=== PATIENT | female | born 1935 | race Caucasian/White ===

== ENCOUNTER 2017-01-02 13:00 | Emergency (ER) | payer OTHER, MEDICARE ==
[~2017-01-02] VITALS: Ht 167.6 cm; Wt 81.3 kg
[~2017-01-02 13:00] MED LIST: ACET-1311 PO; ALBU0.08 INH; ASPI81TA28 PO; BISA10SU3 PR; CITA10TA8 PO; DONE10TA12 PO; GABA-112 PO; GUAI1TAB55 PO; HALO5INJ IM; LORA2INJ19 IM; LOSA100T65 PO; LVNIS30 SQ; MAGNSUS5 PO; METO50TA16 PO; NMN10 PO; QUET1TAB34 PO; SODIENE PR; [UNRECOGNIZED DRUG - CODE] PO
[2017-01-02 13:14] VITALS: TEMP 36.4; O2SAT 96; Ht 167.6 cm; Wt 81.3 kg
[2017-01-02] MEDS ORDERED: SODIUM CHLORIDE 0.9% 1000ML 1,000 ML IV STA (13:22)
--- NOTE | 2017-01-02 13:28 | EMERGENCY ROOM VISIT NOTE ---
History Report prepared by Shell: Jaun Hardy Under the Supervision of: Dr. Marquis Lo D.O. First contact with patient: 13:15 Chief Complaint: SYNCOPE (NEAR SYNCOPE) Stated Complaint: SYNCOPE History of Present Illness The patient is an 81 year old female who presents to the Emergency Room from [facility] with complaints of a syncopal episode that occurred prior to arrival today. Per the nursing staff, the patient was out for 10 minutes. Per the patient's daughter, [facility] noted that the patient was not alert at lunch, and sometimes went unresponsive. The patient was hard to arouse , but the patient's vitals were good. Per the patient's daughter, the patient was great 3 days ago, and was able to talk and laugh. 2 days ago, the patient was sleepy, but nothing like today. Yesterday, the patient was pretty good but a bit quiet. The patient has been eating and drinking fine. The patient has not stated any recent complaints, and she has not had any recent falls. In the room , the patient does complain of new left leg pain. The patient had left hip surgery in June. She has dementia. The patient has a history of a stent placement behind her eye. She is not on any pain medications. Source of History: patient, family (daughter), nursing staff Onset: Prior to arrival today Position: other (global - syncope) Symptom Intensity: episode lasted 10 minutes Timing: other (episode) Note: Associated symptoms: Left leg pain. Hard to arouse and not alert at lunch today. Review of Systems See HPI for pertinent positives & negatives. A total of 10 systems reviewed and were otherwise negative. Past Medical & Surgical Medical Problems: (1) Acute renal failure (2) Carotid artery-cavernous sinus fistula (3) Dementia (4) SIRS (systemic inflammatory response syndrome) Family History Patient reports no known family medical history. Social History Smoking Status: Unknown if Ever Smoked Drug Use: none Marital Status: Housing Status: long term Occupation Status: retired Current/Historical Medications Scheduled Bisacodyl (Dulcolax), 1 SUPP AZ UD Cholecalciferol (Vitamin D), 2,000 UNITS PO QAM Citalopram Hydrobromide (Celexa), 10 MG PO DAILY Donepezil Hydrochloride (Aricept), 10 MG PO HS Enteral Nutrition Formula (Nutritional Supplement), 1 DOSE PO BID Gabapentin (Neurontin), 100 MG PO TID Guaifenesin Ext Rel (Mucinex Ext Rel), 600 MG PO BID Losartan Potassium (Cozaar), 100 MG PO DAILY Memantine (Namenda), 10 MG PO BID Metoprolol Tartrate (Lopressor) (Lopressor), 50 MG PO DAILY Multivitamins/Minerals (Mvi With Minerals), 1 TAB PO DAILY Quetiapine Fumarate (Seroquel), 150 MG PO HS Quetiapine Fumarate (Seroquel), 100 MG PO BID Sodium Phosphate/Biphosphate (Fleet Enema), 1 EA AZ UD Scheduled PRN Acetaminophen (Tylenol), 650 MG PO Q6 PRN for MILD PAIN/TEMP>101 Alum & Mag Hydrox-Simethicone (Mag-Al Plus), 5 ML PO Q4 PRN for Indigestion Magnesium Hydroxide (Milk Of Magnesia), 30 ML PO UD PRN for Constipation Allergies Coded Allergies: Cimetidine (Unverified Allergy, Mild, 07/14/16) Penicillins (Unverified Allergy, Mild, 07/14/16) Sulfamethoxazole (Unverified Allergy, Mild, 07/14/16) Trimethoprim (Unverified Allergy, Mild, 07/14/16) Sulfa Antibiotics (Verified Allergy, Unknown, ., 07/16/16) Physical Exam Vital Signs Date Time Temp Pulse Resp B/P Pulse Ox O2 Delivery O2 Flow Rate FiO2 01/02/17 15:41 66 16 157/84 98 Room Air 01/02/17 14:52 62 16 143/52 97 Room Air 01/02/17 13:37 59 01/02/17 13:14 36.4 58 16 119/52 96 Room Air 01/02/17 13:14 96 Room Air Physical Exam GENERAL: Patient is asleep but awakens to verbal commands. Appears somewhat listless but does not appear to be in pain or anxious. EYES: Pupils are constricted and minimally reactive to light bilaterally. EARS, NOSE, MOUTH AND THROAT: The nose is without any evidence of any deformity. Mucous membranes are dry tongue is midline NECK: The neck is nontender and supple. RESPIRATORY: Shallow respirations noted. No tachypnea or conversational dyspnea appreciated. CARDIOVASCULAR: Regular rate and rhythm noted there no murmurs rubs or gallops normal S1 normal S2 GASTROINTESTINAL: The abdomen is soft. Bowel sounds are present in all quadrants. Abdomen is nontender MUSCULOSKELETAL/EXTREMITIES: Shortening and pain with range of motion of left leg. No deformity appreciated. SKIN: Pedal edema bilaterally. NEUROLOGIC: Patient is at baseline according to daughter. Medical Decision & Procedures ER Provider Diagnostic Interpretation: Radiology results as stated below per my review and radiologist interpretation: CT SCAN OF THE BRAIN WITHOUT IV CONTRAST CLINICAL HISTORY: Weakness. Change in mental status. Syncope. COMPARISON STUDY: No priors. TECHNIQUE: Unenhanced axial CT scan of the brain is performed from the vertex to the skull base. CT DOSE: 614.27 mGy.cm FINDINGS: Brain parenchyma: There are age-related involutional changes noting moderate patchy subcortical and periventricular microangiopathic change. There is no hemorrhage, mass effect, or evidence of acute territorial ischemia by CT criteria. A chronic lacunar infarct is identified in the left caudate head. Cunningham-white matter is preserved. No extra-axial fluid collection is seen. Ventricles, sulci, cisterns: Prominent secondary to involutional change. Intracranial vasculature: There is atherosclerotic calcification of the cavernous carotid and vertebral arteries. 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 Calvarium: Unremarkable. Sinuses and mastoids: There is trace mucosal thickening within the right maxillary antrum and ethmoid sinuses. Moderate mucosal thickening is seen in the left frontal sinus. The mastoid air cells are well pneumatized. Orbits: The bony orbits are grossly intact. There are bilateral ocular lens implants. 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 IMPRESSION: 1. There is no hemorrhage, mass effect, or evidence of acute territorial ischemia by CT criteria. 2. 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 Correlation the patient's medical history will be required. Electronically signed by: Westley Schuster M.D. 01/02/2017 2:44 PM Dictated Date/Time: 01/02/2017 2:39 PM CHEST ONE VIEW PORTABLE CLINICAL HISTORY: Altered mental status, weakness, syncope. COMPARISON STUDY: 07/16/2016 FINDINGS: The cardiac and mediastinal contours are normal. There is no evidence of focal pulmonary consolidation. There is no evidence of failure. No pleural effusions are visualized.[ Increased markings the right lung base are likely atelectatic. These appear improved compared the prior study. IMPRESSION: Improving right basilar atelectatic change. No acute findings. Electronically signed by: Ahsan De Anda M.D. 01/02/2017 2:14 PM Dictated Date/Time: 01/02/2017 2:13 PM LEFT PELVIS/UNILATERAL HIP 2-3VIEWS CLINICAL HISTORY: left hip pain COMPARISON STUDY: Pelvis and left hip 09/20/2016. FINDINGS: There is a left hip hemiarthroplasty. The hardware appears intact. No fracture or dislocation within the pelvis or hips. The sacrum appears intact. Large amount of stool seen within the rectum. The bones are osteopenic. IMPRESSION: No fracture or dislocation within the pelvis or hips. Electronically signed by: Zaire Ramirez M.D. 01/02/2017 2:13 PM Dictated Date/Time: 01/02/2017 2:11 PM Laboratory Results 01/02/17 14:40 Red Blood Count 4.00, Mean Corpuscular Volume 91.8, Mean Corpuscular Hemoglobin 29.3, Mean Corpuscular Hemoglobin Concent 31.9, Mean Platelet Volume 9.7, Neutrophils (%) (Auto) 71.3, Lymphocytes (%) (Auto) 16.0, Monocytes (%) (Auto) 7.3, Eosinophils (%) (Auto) 4.7, Basophils (%) (Auto) 0.4, Neutrophils # (Auto) 5.34, Lymphocytes # (Auto) 1.20, Monocytes # (Auto) 0.55, Eosinophils # (Auto) 0.35, Basophils # (Auto) 0.03 01/02/17 14:40 Test 01/02/17 13:49 01/02/17 14:40 01/02/17 16:15 Bedside Glucose 127 mg/dl (70-90) White Blood Count 7.49 K/uL (4.8-10.8) Red Blood Count 4.00 M/uL (4.2-5.4) Hemoglobin 11.7 g/dL (12.0-16.0) Hematocrit 36.7 % (37-47) Mean Corpuscular Volume 91.8 fL (80-100) Mean Corpuscular Hemoglobin 29.3 pg (25-34) Mean Corpuscular Hemoglobin Concent 31.9 g/dl (32-36) Platelet Count 280 K/uL (130-400) Mean Platelet Volume 9.7 fL (7.4-10.4) Neutrophils (%) (Auto) 71.3 % Lymphocytes (%) (Auto) 16.0 % Monocytes (%) (Auto) 7.3 % Eosinophils (%) (Auto) 4.7 % Basophils (%) (Auto) 0.4 % Neutrophils # (Auto) 5.34 K/uL (1.4-6.5) Lymphocytes # (Auto) 1.20 K/uL (1.2-3.4) Monocytes # (Auto) 0.55 K/uL (0.11-0.59) Eosinophils # (Auto) 0.35 K/uL (0-0.5) Basophils # (Auto) 0.03 K/uL (0-0.2) RDW Standard Deviation 46.8 fL (36.4-46.3) RDW Coefficient of Variation 14.1 % (11.5-14.5) Immature Granulocyte % (Auto) 0.3 % Immature Granulocyte # (Auto) 0.02 K/uL (0.00-0.02) Prothrombin Time 10.1 SECONDS (9.0-12.0) Prothromb Time International Ratio 0.9 (0.9-1.1) Activated Partial Thromboplast Time 23.3 SECONDS (21.0-31.0) Partial Thromboplastin Ratio 0.9 Anion Gap 5.0 mmol/L (3-11) Est Creatinine Clear Calc Drug Dose 28.4 ml/min Estimated GFR () 32.4 Estimated GFR (Non- 28.0 BUN/Creatinine Ratio 18.6 (10-20) Calcium Level 11.0 mg/dl (8.5-10.1) Phosphorus Level 3.3 mg/dl (2.5-4.9) Magnesium Level 2.3 mg/dl (1.8-2.4) Total Bilirubin 0.4 mg/dl (0.2-1) Direct Bilirubin 0.1 mg/dl (0-0.2) Aspartate Amino Transf (AST/SGOT) 13 U/L (15-37) Alanine Aminotransferase (ALT/SGPT) 20 U/L (12-78) Alkaline Phosphatase 110 U/L (45-117) Total Creatine Kinase 43 U/L (26-192) Creatine Kinase MB 1.1 ng/ml (0.5-3.6) Creatine Kinase MB Ratio 2.6 (0-3.0) Troponin I < 0.015 ng/ml (0-0.045) Total Protein 7.9 gm/dl (6.4-8.2) Albumin 3.4 gm/dl (3.4-5.0) Thyroid Stimulating Hormone (TSH) 1.810 uIu/ml (0.300-4.500) Urine Color YELLOW Urine Appearance CLEAR (CLEAR) Urine pH 5.0 (4.5-7.5) Urine Specific [place] 1.016 (1.000-1.030) Urine Protein NEG (NEG) Urine Glucose (UA) NEG (NEG) Urine Ketones NEG (NEG) Urine Occult Blood NEG (NEG) Urine Nitrite POS (NEG) Urine Bilirubin NEG (NEG) Urine Urobilinogen NEG (NEG) Urine Leukocyte Esterase NEG (NEG) Urine WBC (Auto) 1-5 /hpf (0-5) Urine RBC (Auto) 0-4 /hpf (0-4) Urine Hyaline Casts (Auto) 1-5 /lpf (0-5) Urine Epithelial Cells (Auto) 5-10 /lpf (0-5) Urine Bacteria (Auto) 2+ (NEG) Laboratory results per my review. Medications Administered Medications (Trade) Dose Ordered Sig/Janet Route Start Time Stop Time Status Last Admin Dose Admin Sodium Chloride (Nss 1000ml) 1,000 ml @ 999 mls/hr Q1H1M STAT IV 01/02/17 13:22 01/02/17 14:22 DC 01/02/17 14:11 999 MLS/HR ECG Indication: syncope Rate (beats per minute): 61 Rhythm: sinus rhythm Findings: 1st degree AV block, no ectopy, other (RBBB) Change: no significant change (from July 14 2016) ED Course 1316: The patient was evaluated in room C5. A complete history and physical examination were performed. 1322: Ordered NSS 1000 ml @ 999 mls/hr IV. 1600: I reevaluated the patient and we are going to cath her urine. If it comes back infected, then the patient's daughter wants us to keep the patient. If it is not infected, then she can go home and be followed up with. 1656: Upon reevaluation, the patient is resting comfortably and I told the family that the urine was clean. I discussed the results and treatment plan with the patient and her family. They verbalized agreement of the treatment plan. The patient was discharged home. Medical Decision Prior records/ancillary studies reviewed. Triage Nursing notes reviewed. Additional history obtained from daughter. Differential diagnosis: Etiologies such as vasovagal event, infection, hypoglycemia, electrolyte abnormalities, cardiac sources, intracerebral event, toxicologic, neurologic, as well as others were entertained. The patient is an 81-year-old female who presented to the emergency department for an evaluation after a syncopal episode. According to the long term staff. The patient had an episode where she passed out and was nonresponsive for a short period of time. She also did not have any seizure activity. The patient arrived at the emergency department in her normal mental status according to her daughter. The patient did not have any focal neurologic deficits but did have left leg pain with range of motion testing. There is no history of trauma but the patient doesn't a history of a hip replacement. For this reason radiographic studies were obtained. No definite injury was noted. The patient was treated with IV fluids in the emergency department. I discussed the patient's laboratory radiographic studies with her and her daughter. She appears to have no definite signs of urinary tract infection but this was a cath specimen, so it was sent for culture. She was found have a mild elevation in her creatinine, as well as in mild elevation in her calcium. This could explain the patient's symptoms she may be mildly dehydrated and passed out because of orthostasis. I discussed the case with the emergency Department case assembler. At this time she does not meet definite criteria for admission and the patient's daughter was comfortable with her having further workup as an outpatient. She was encouraged to continue all medications as prescribed and have repeat laboratory studies in 3-5 days. She was also encouraged to return to the emergency department immediately if symptoms change worsen or the need arises. Impression Primary Impression: Hypercalcemia Additional Impressions: Syncope Acute kidney injury Dehydration Scribe Attestation The scribe's documentation has been prepared under my direction and personally reviewed by me in its entirety. I confirm that the note above accurately reflects all work, treatment, procedures, and medical decision making performed by me. Departure Information Dispostion Home / Self-Care Referrals No Doctor, Assigned (PCP) Forms HOME CARE DOCUMENTATION FORM, IMPORTANT VISIT INFORMATION Patient Instructions Dehydration, Hypercalcemia Dc, My [facility] Additional Instructions [place] calcium level was mildly elevated today in the emergency department. I would recommend repeat laboratory tests to be done in 3-5 days including repeat electrolytes to check creatinine as well as calcium. I would also recommend a follow-up of the urine culture in 24-48 hours to be sure this is not consistent with the urinary tract infection. Continue to drink plenty clear liquids. I would also recommend other testing such as echocardiogram or Holter monitoring if this is felt to be necessary by the primary care physician because of the episode that occurred today. Otherwise continue all medications as prescribed and return to the emergency department immediately if symptoms change worsen or the need arises. Problem Qualifiers Additional Impressions: Syncope Syncope type: unspecified Qualified Codes: R55 - Syncope and collapse
[2017-01-02] MEDS ORDERED: MULT-513 PO (14:04)
[2017-01-02] MEDS ORDERED: CHOL200010 PO (14:06)
[2017-01-02] MEDS ORDERED: NTRS PO (14:06)
[2017-01-02] MEDS ORDERED: MOML PO (14:08)
--- NOTE | 2017-01-02 14:14 | DIAGNOSTIC IMAGING REPORT ---
LEFT PELVIS/UNILATERAL HIP 2-3VIEWS CLINICAL HISTORY: left hip pain COMPARISON STUDY: Pelvis and left hip 09/20/2016. FINDINGS: There is a left hip hemiarthroplasty. The hardware appears intact. No fracture or dislocation within the pelvis or hips. The sacrum appears intact. Large amount of stool seen within the rectum. The bones are osteopenic. IMPRESSION: No fracture or dislocation within the pelvis or hips. Electronically signed by: Zaire Ramirez M.D. 01/02/2017 2:13 PM Dictated Date/Time: 01/02/2017 2:11 PM
--- NOTE | 2017-01-02 14:15 | DIAGNOSTIC IMAGING REPORT ---
CHEST ONE VIEW PORTABLE CLINICAL HISTORY: Altered mental status, weakness, syncope. COMPARISON STUDY: 07/16/2016 FINDINGS: The cardiac and mediastinal contours are normal. There is no evidence of focal pulmonary consolidation. There is no evidence of failure. No pleural effusions are visualized.[ Increased markings the right lung base are likely atelectatic. These appear improved compared the prior study. IMPRESSION: Improving right basilar atelectatic change. No acute findings. Electronically signed by: Ahsan De Anda M.D. 01/02/2017 2:14 PM Dictated Date/Time: 01/02/2017 2:13 PM
--- NOTE | 2017-01-02 14:45 | DIAGNOSTIC IMAGING REPORT ---
CT SCAN OF THE BRAIN WITHOUT IV CONTRAST CLINICAL HISTORY: Weakness. Change in mental status. Syncope. COMPARISON STUDY: No priors. TECHNIQUE: Unenhanced axial CT scan of the brain is performed from the vertex to the skull base. CT DOSE: 614.27 mGy.cm FINDINGS: Brain parenchyma: There are age-related involutional changes noting moderate patchy subcortical and periventricular microangiopathic change. There is no hemorrhage, mass effect, or evidence of acute territorial ischemia by CT criteria. A chronic lacunar infarct is identified in the left caudate head. Cunningham-white matter is preserved. No extra-axial fluid collection is seen. Ventricles, sulci, cisterns: Prominent secondary to involutional change. Intracranial vasculature: There is atherosclerotic calcification of the cavernous carotid and vertebral arteries. 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 Calvarium: Unremarkable. Sinuses and mastoids: There is trace mucosal thickening within the right maxillary antrum and ethmoid sinuses. Moderate mucosal thickening is seen in the left frontal sinus. The mastoid air cells are well pneumatized. Orbits: The bony orbits are grossly intact. There are bilateral ocular lens implants. 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 IMPRESSION: 1. There is no hemorrhage, mass effect, or evidence of acute territorial ischemia by CT criteria. 2. 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 Correlation the patient's medical history will be required. Electronically signed by: Westley Schuster M.D. 01/02/2017 2:44 PM Dictated Date/Time: 01/02/2017 2:39 PM
[2017-01-02 14:51] LABS: BASO % 0.4 %; BASO ABS # 0.03 K/uL (0-0.2); COMPLETE YES; EOS % 4.7 %; HEMATOCRIT 36.7 % (37-47); IG% 0.3 %; MEAN CELL VOLUME 91.8 fL (80-100); MEAN CORPUSCULAR HEMOGLOBIN 29.3 pg (25-34); MEAN CORPUSCULAR HGB CONC 31.9 g/dl (32-36); MEAN PLATELET VOLUME 9.7 fL (7.4-10.4); MONO % 7.3 %; NEUT % 71.3 %; PLATELET COUNT 280 K/uL (130-400); WHITE BLOOD COUNT 7.49 K/uL (4.8-10.8)
[2017-01-02 15:07] LABS: INR 0.9 (0.9-1.1); PARTIAL THROMBOPLASTIN RATIO 0.9; PROTHROMBIN TIME (PATIENT) 10.1 SECONDS (9.0-12.0)
[2017-01-02 15:17] LABS: ALT/SGPT 20 U/L (12-78); AST/SGOT 13 U/L (15-37); BLOOD UREA NITROGEN 32 mg/dl (7-18); BUN/CREATININE RATIO 18.6 (10-20); CARBON DIOXIDE 30 mmol/L (21-32); CHLORIDE 106 mmol/L (98-107); GLUCOSE 143 mg/dl (70-99); MAGNESIUM 2.3 mg/dl (1.8-2.4); POTASSIUM 4.1 mmol/L (3.5-5.1); SODIUM 141 mmol/L (136-145)
[2017-01-02 15:25] LABS: ALKALINE PHOSPHATASE 110 U/L (45-117); CKMB/CK RATIO 2.6 (0-3.0); PHOSPHORUS 3.3 mg/dl (2.5-4.9)
[2017-01-02 16:40] LABS: URINE APPEARANCE CLEAR (CLEAR); URINE BILIRUBIN NEG (NEG); URINE COLOR YELLOW; URINE NITRITE POS (NEG); URINE SPECIFIC GRAVITY 1.016 (1.000-1.030); UROBILINOGEN NEG (NEG); ZZURINE CULT IF INDIC CATH YES
[2017-01-02 16:50] LABS: MANUAL MICROSCOPIC REQUIRED? NO; REVIEW REQ? NO
[2017-01-02 19:38] VITALS: BP 135/71; PULSE 65; O2SAT 98
== END 2017-01-02 19:40 | disposition home or self-care (01) ==
LOC: EDBD 13:00 → C.EDC 13:01
DX: E83.52 Hypercalcemia (principal); R55 Syncope and collapse; E86.0 Dehydration; N17.9 Acute kidney failure, unspecified; M79.605 Pain in left leg; F03.90 Unspecified dementia, unspecified severity, without behavioral disturbance, psychotic disturbance, mood disturbance, and anxiety; Z79.899 Other long term (current) drug therapy

== ENCOUNTER → 2017-01-03 | Outpatient (CLI) | payer OTHER, MEDICARE ==
[~2017-01-03] MED LIST changes: -ALBU0.08 INH; -ASPI81TA28 PO; +CHOL200010 PO; -HALO5INJ IM; -LORA2INJ19 IM; -LVNIS30 SQ; -MAGNSUS5 PO; +MOML PO; +MULT-513 PO; +NTRS PO
--- NOTE | 2017-01-03 14:15 | ECHOCARDIOGRAM REPORT ---
*NOTICE TO RECEIVING LIBERTARIAN AGENCY This information is strictly Confidential and protected under [place] law. [place] law prohibits you from making any further disclosure of this information unless further disclosure is expressly permitted by the written consent of the person to whom it pertains or is authorized by law. A general authorization for the release of medical or other information is not sufficient for this purpose. Hospital accepts no responsibility if the information is made available to any other person, INCLUDING THE PATIENT. Interpretation Summary * Name: ALONSO SIMS Study Date: 01/03/2017 12:12 PM BP: 135/71 mmHg * Patient Location: [facility] HR: 79 * : 1935 (M/d/yyyy) Gender: Female Height: 66 in * Age: 81 yrs Ethnicity: [place] Weight: 179 lb * Ordering Physician: CHRISTEN RODRIGUEZ MD * Performed By: Jen Aguilera RCS * * Reason For Study: UNRESPONSIVE EPISODE * BSA: 1.9 m2 * -- Conclusions -- * There is mild concentric left ventricular hypertrophy. * Left ventricular systolic function is normal. * Grade I diastolic dysfunction, (abnormal relaxation pattern). * Right ventricular systolic pressure is normal. Procedure Details * A complete two-dimensional transthoracic echocardiogram was performed (2D, M-mode, Doppler and color flow Doppler). Left Ventricle * The left ventricle is normal in size. * There is mild concentric left ventricular hypertrophy. * Left ventricular systolic function is normal. * Ejection Fraction = 60-65%. * Grade I diastolic dysfunction, (abnormal relaxation pattern). * The left ventricular wall motion is normal. Right Ventricle * The right ventricle is normal in size and function. Atria * The left atrial size is normal. * Right atrial size is normal. Mitral Valve * The mitral valve leaflets appear thickened, but open well. * There is no mitral regurgitation noted. Tricuspid Valve * The tricuspid valve is not well visualized, but is grossly normal. * There is trace tricuspid regurgitation. * Right ventricular systolic pressure is normal. Aortic Valve * Aortic valve sclerosis mild, without significant aortic valvular stenosis. * No hemodynamically significant valvular aortic stenosis. * There is no significant aortic regurgitation. Pericardium/Pleural * There is no pericardial effusion. Great Vessels * Normal inferior vena cava size and collapsability with sniff indicates a normal right atrial pressure of 3 mmHg MMode 2D Measurements and Calculations IVSd 1.2 cm IVSs 1.8 cm LVIDd 3.4 cm LVIDs 2.2 cm LVPWd 1.5 cm LVPWs 1.7 cm IVS/LVPW 0.82 FS 35.8 % EDV(Teich) 45.8 ml ESV(Teich) 15.3 ml EF(Teich) 66.6 % EDV(cubed) 37.6 ml ESV(cubed) 10.0 ml EF(cubed) 73.5 % % IVS thick 51.1 % % LVPW thick 12.7 % LV mass(C)d 152.9 grams LV mass(C)dI 80.2 grams/m\S\2 LV mass(C)s 142.5 grams LV mass(C)sI 74.7 grams/m\S\2 SV(Teich) 30.5 ml SI(Teich) 16.0 ml/m\S\2 SV(cubed) 27.7 ml SI(cubed) 14.5 ml/m\S\2 ACS 1.6 cm LVOT diam 2.0 cm LVOT area 3.2 cm\S\2 Doppler Measurements and Calculations MV E max alvarez 61.5 cm/sec MV A max alvarez 123.5 cm/sec MV E/A 0.50 MV P1/2t max alvarez 74.2 cm/sec MV P1/2t 76.7 msec MVA(P1/2t) 2.9 cm\S\2 MV dec slope 283.0 cm/sec\S\2 MV dec time 0.32 sec Ao V2 max 155.4 cm/sec Ao max PG 9.7 mmHg Ao max PG (full) 6.1 mmHg KATHERIN(V,A) 1.9 cm\S\2 KATHERIN(V,D) 1.9 cm\S\2 LV V1 max PG 3.6 mmHg LV V1 max 94.4 cm/sec PA V2 max 108.3 cm/sec PA max PG 4.7 mmHg TR max alvarez 247.2 cm/sec
--- NOTE | 2017-01-21 17:51 | CODING QUERY NO DIAGNOSIS ---
TREATMENT RENDERED WITHOUT A DIAGNOSIS To promote full compliance with coding requirements relating to patient care, physician participation is requested in all cases of asbestos surveyor uncertainty. Please assist us with providing a diagnosis/symptom for the test(s) below: A diagnosis/symptom was not documented on your Order. A valid diagnosis/symptom is required to bill all insurances. Please remember that we are unable to code a diagnosis of rule out, probable, possible, questionable, or suspected. Tests that require a diagnosis: * ECHO COMPLETE DIAGNOSIS: * CPL-OP OTHER THAN EKG DIAGNOSIS: Provider Signature: Date: Thank you Ambar Esposito [employer] Information Management Once completed, please kindly fax back to [phone] For questions please call [phone]
== END ==
LOC: C.CPL 11:54
PROVIDERS: ATTEND Nurse Practitioner Family
DX: R94.31 Abnormal electrocardiogram [ECG] [EKG] (principal)

== ENCOUNTER → 2017-01-06 | Outpatient (CLI) | payer OTHER, MEDICARE ==
[2017-01-06 11:25] LABS: CALCIUM 11.7 mg/dl (8.5-10.1)
--- NOTE | 2017-01-23 06:47 | CODING QUERY NO DIAGNOSIS ---
TREATMENT RENDERED WITHOUT A DIAGNOSIS To promote full compliance with coding requirements relating to patient care, physician participation is requested in all cases of dental technologist uncertainty. Please assist us with providing a diagnosis/symptom for the test(s) below: A diagnosis/symptom was not documented on your Order. A valid diagnosis/symptom is required to bill all insurances. Please remember that we are unable to code a diagnosis of rule out, probable, possible, questionable, or suspected. Tests that require a diagnosis: * CALCIUM DIAGNOSIS: * CREATININE DIAGNOSIS: Provider Signature: Date: Thank you Ambar [place] [employer] Information Management Once completed, please kindly fax back to [phone] For questions please call [phone]
== END ==
LOC: C.LABUPHEI 09:28
PROVIDERS: ATTEND Family Medicine
DX: N18.9 Chronic kidney disease, unspecified (principal)

== ENCOUNTER → 2017-01-08 | Outpatient (CLI) | payer OTHER, MEDICARE ==
[2017-01-08 09:43] LABS: BASO % 0.1 %; BASO ABS # 0.02 K/uL (0-0.2); COMPLETE YES; EOS % 1.8 %; IG% 0.4 %; LYMPH ABS # 1.75 K/uL (1.2-3.4); MEAN CELL VOLUME 90.7 fL (80-100); MEAN CORPUSCULAR HEMOGLOBIN 29.5 pg (25-34); MEAN CORPUSCULAR HGB CONC 32.5 g/dl (32-36); MEAN PLATELET VOLUME 10.2 fL (7.4-10.4); MONO % 8.1 %; NEUT % 76.6 %; PLATELET COUNT 277 K/uL (130-400); RED BLOOD COUNT 3.53 M/uL (4.2-5.4); WHITE BLOOD COUNT 13.51 K/uL (4.8-10.8)
[2017-01-08 10:07] LABS: ALB/GLOB RATIO 0.8 (0.9-2); ALT/SGPT 17 U/L (12-78); AST/SGOT 17 U/L (15-37); BLOOD UREA NITROGEN 47 mg/dl (7-18); BUN/CREATININE RATIO 18.1 (10-20); CALCIUM 10.6 mg/dl (8.5-10.1); CARBON DIOXIDE 30 mmol/L (21-32); CHLORIDE 105 mmol/L (98-107); GLUCOSE 97 mg/dl (70-99); POTASSIUM 3.9 mmol/L (3.5-5.1); SODIUM 141 mmol/L (136-145)
[2017-01-08 10:08] LABS: ALKALINE PHOSPHATASE 83 U/L (45-117)
== END ==
LOC: C.LABUPHEI 08:47
PROVIDERS: ATTEND Family Medicine
DX: M62.81 Muscle weakness (generalized) (principal)

== ENCOUNTER → 2017-01-09 | Outpatient (CLI) | payer OTHER, MEDICARE ==
[2017-01-09 10:11] LABS: BASO % 0.2 %; BASO ABS # 0.02 K/uL (0-0.2); COMPLETE YES; EOS % 4.4 %; HEMATOCRIT 32.2 % (37-47); IG% 0.4 %; LYMPH % 13.8 %; LYMPH ABS # 1.48 K/uL (1.2-3.4); MEAN CORPUSCULAR HEMOGLOBIN 28.8 pg (25-34); MEAN CORPUSCULAR HGB CONC 31.7 g/dl (32-36); MEAN PLATELET VOLUME 10.4 fL (7.4-10.4); MONO % 7.6 %; NEUT % 73.6 %; PLATELET COUNT 276 K/uL (130-400); RED BLOOD COUNT 3.54 M/uL (4.2-5.4); WHITE BLOOD COUNT 10.71 K/uL (4.8-10.8)
[2017-01-09 10:31] LABS: BLOOD UREA NITROGEN 39 mg/dl (7-18); BUN/CREATININE RATIO 19.4 (10-20); CARBON DIOXIDE 26 mmol/L (21-32); CHLORIDE 105 mmol/L (98-107); GLUCOSE 103 mg/dl (70-99); POTASSIUM 3.8 mmol/L (3.5-5.1); SODIUM 139 mmol/L (136-145)
[2017-01-09 10:34] LABS: CALCIUM 9.7 mg/dl (8.5-10.1)
== END ==
LOC: C.LABUPHEI 09:12
PROVIDERS: ATTEND Nurse Practitioner Family
DX: N18.9 Chronic kidney disease, unspecified (principal)

== ENCOUNTER → 2017-01-11 | Outpatient (CLI) | payer OTHER, MEDICARE ==
[2017-01-11 07:43] LABS: BASO % 0.3 %; BASO ABS # 0.02 K/uL (0-0.2); COMPLETE YES; EOS % 6.3 %; HEMATOCRIT 29.8 % (37-47); IG% 0.3 %; LYMPH % 20.7 %; LYMPH ABS # 1.59 K/uL (1.2-3.4); MEAN CELL VOLUME 91.1 fL (80-100); MEAN CORPUSCULAR HGB CONC 32.9 g/dl (32-36); MEAN PLATELET VOLUME 10.3 fL (7.4-10.4); NEUT % 61.4 %; PLATELET COUNT 271 K/uL (130-400); RED BLOOD COUNT 3.27 M/uL (4.2-5.4); WHITE BLOOD COUNT 7.67 K/uL (4.8-10.8)
[2017-01-11 07:57] LABS: BLOOD UREA NITROGEN 24 mg/dl (7-18); CALCIUM 9.4 mg/dl (8.5-10.1); CARBON DIOXIDE 25 mmol/L (21-32); CHLORIDE 110 mmol/L (98-107); GLUCOSE 103 mg/dl (70-99); POTASSIUM 3.7 mmol/L (3.5-5.1); SODIUM 142 mmol/L (136-145)
== END ==
LOC: C.LABUPHEI 08:39
PROVIDERS: ATTEND Family Medicine
DX: I10 Essential (primary) hypertension (principal); N18.9 Chronic kidney disease, unspecified

== ENCOUNTER → 2017-01-17 | Outpatient (CLI) | payer OTHER, MEDICARE ==
[2017-01-17 11:52] LABS: MEAN CELL VOLUME 90.7 fL (80-100); MEAN CORPUSCULAR HEMOGLOBIN 28.9 pg (25-34); MEAN CORPUSCULAR HGB CONC 31.9 g/dl (32-36); MEAN PLATELET VOLUME 9.5 fL (7.4-10.4); PLATELET COUNT 345 K/uL (130-400); RED BLOOD COUNT 3.53 M/uL (4.2-5.4); WHITE BLOOD COUNT 6.41 K/uL (4.8-10.8)
[2017-01-17 12:02] LABS: BLOOD UREA NITROGEN 18 mg/dl (7-18); BUN/CREATININE RATIO 12.5 (10-20); CARBON DIOXIDE 28 mmol/L (21-32); CHLORIDE 107 mmol/L (98-107); GLUCOSE 97 mg/dl (70-99); POTASSIUM 3.7 mmol/L (3.5-5.1); SODIUM 142 mmol/L (136-145)
[2017-01-17 12:10] LABS: CALCIUM 9.5 mg/dl (8.5-10.1)
== END ==
LOC: C.LABUPHEI 09:08
PROVIDERS: ATTEND Nurse Practitioner Family
DX: N18.9 Chronic kidney disease, unspecified (principal)

== ENCOUNTER → 2017-01-18 | Outpatient (CLI) | payer OTHER, MEDICARE ==
[2017-01-18 06:06] LABS: BASO % 0.6 %; BASO ABS # 0.04 K/uL (0-0.2); COMPLETE YES; EOS % 6.2 %; HEMATOCRIT 31.7 % (37-47); IG% 0.3 %; LYMPH % 26.1 %; LYMPH ABS # 1.72 K/uL (1.2-3.4); MEAN CELL VOLUME 90.8 fL (80-100); MEAN CORPUSCULAR HEMOGLOBIN 29.5 pg (25-34); MEAN CORPUSCULAR HGB CONC 32.5 g/dl (32-36); MEAN PLATELET VOLUME 9.5 fL (7.4-10.4); MONO % 7.9 %; NEUT % 58.9 %; PLATELET COUNT 351 K/uL (130-400); RED BLOOD COUNT 3.49 M/uL (4.2-5.4); WHITE BLOOD COUNT 6.59 K/uL (4.8-10.8)
[2017-01-18 06:14] LABS: BLOOD UREA NITROGEN 17 mg/dl (7-18); CALCIUM 9.6 mg/dl (8.5-10.1); CARBON DIOXIDE 30 mmol/L (21-32); CHLORIDE 109 mmol/L (98-107); GLUCOSE 96 mg/dl (70-99); POTASSIUM 3.6 mmol/L (3.5-5.1); SODIUM 144 mmol/L (136-145)
== END | disposition home or self-care (01) ==
LOC: C.LABUPHEI 09:25
PROVIDERS: ATTEND Family Medicine
DX: G35 Multiple sclerosis (principal)

== ENCOUNTER → 2017-01-29 | Outpatient (CLI) | payer OTHER, MEDICARE ==
[2017-01-29 09:09] LABS: HEMATOCRIT 33.7 % (37-47)
[2017-01-29 09:36] LABS: CALCIUM 10.8 mg/dl (8.5-10.1)
[2017-01-29 09:41] LABS: BLOOD UREA NITROGEN 21 mg/dl (7-18); BUN/CREATININE RATIO 13.4 (10-20); CARBON DIOXIDE 29 mmol/L (21-32); CHLORIDE 105 mmol/L (98-107); GLUCOSE 92 mg/dl (70-99); SODIUM 142 mmol/L (136-145)
[2017-01-29 09:42] LABS: PHOSPHORUS 2.9 mg/dl (2.5-4.9)
[2017-01-29 15:18] LABS: URINE APPEARANCE CLEAR (CLEAR); URINE BILIRUBIN NEG (NEG); URINE COLOR YELLOW; URINE NITRITE NEG (NEG); URINE PH 6.5 (4.5-7.5); URINE SPECIFIC GRAVITY 1.018 (1.000-1.030); UROBILINOGEN NEG (NEG)
[2017-01-29 15:25] LABS: MANUAL MICROSCOPIC REQUIRED? NO; REVIEW REQ? NO
[2017-01-30 16:45] LABS: ALBUMIN 3.1 G/DL (3.8-4.8); FREE KAPPA 45.7 MG/L (3.3-19.4); FREE KAPPA/LAMBDA RATIO 1.83 (0.26-1.65); GAMMA GLOBULIN 1.4 G/DL (0.8-1.7); IMMUNOFIXATION IGA SERUM 229 MG/DL (81-463); IMMUNOFIXATION IGG SERUM 1621 MG/DL (694-1618); IMMUNOFIXATION IGM SERUM 21 MG/DL (48-271); TOTAL PROTEIN 6.3 G/DL (6.2-8.3)
[2017-02-03 11:36] LABS: ALBUMIN % 17.02 %; ALPHA-2-GLOBULIN % 23.06 %; BETA GLOBULIN % 29.14 %; CREATININE UR 101 MG/DL (20-320); GAMMA GLOBULIN % 24.84 %
--- NOTE | 2017-02-11 11:15 | CODING QUERY MEDICAL NECESSITY ---
SUPPORTING DIAGNOSIS NEEDED A supporting diagnosis is required for the test/procedure performed on this patient in order for us to be reimbursed by the patient's insurance. Please provide a supporting diagnosis for the following test/procedure listed below next to the test name along with your signature. *If there is no additional diagnosis for this patient that would support the following test/procedure please document that below next to the test/procedure. Test(s)/Procedure(s) that require a supporting diagnosis: * VITAMIN D, 25- HYDROXY DIAGNOSIS: Provider Signature: Date: Thank you Ambar Esposito [employer] Information Management Once completed, please kindly fax back to [phone] For questions please call [phone]
== END ==
LOC: C.LABUPHEI 08:38
PROVIDERS: ATTEND Nurse Practitioner Family
DX: N18.9 Chronic kidney disease, unspecified (principal); M62.81 Muscle weakness (generalized); I67.6 Nonpyogenic thrombosis of intracranial venous system

== ENCOUNTER → 2017-02-19 | Outpatient (CLI) | payer OTHER, MEDICARE ==
[2017-02-19 09:44] LABS: BASO % 0.6 %; BASO ABS # 0.04 K/uL (0-0.2); COMPLETE YES; EOS % 9.7 %; LYMPH % 31.9 %; LYMPH ABS # 1.98 K/uL (1.2-3.4); MEAN CELL VOLUME 90.7 fL (80-100); MEAN CORPUSCULAR HEMOGLOBIN 29.1 pg (25-34); MEAN CORPUSCULAR HGB CONC 32.1 g/dl (32-36); MEAN PLATELET VOLUME 9.5 fL (7.4-10.4); MONO % 11.9 %; NEUT % 45.9 %; PLATELET COUNT 247 K/uL (130-400); RED BLOOD COUNT 3.75 M/uL (4.2-5.4)
[2017-02-19 09:55] LABS: BLOOD UREA NITROGEN 25 mg/dl (7-18); BUN/CREATININE RATIO 15.8 (10-20); CALCIUM 11.2 mg/dl (8.5-10.1); CARBON DIOXIDE 28 mmol/L (21-32); CHLORIDE 108 mmol/L (98-107); GLUCOSE 96 mg/dl (70-99); SODIUM 141 mmol/L (136-145)
--- NOTE | 2017-02-20 14:01 | CODING QUERY NO DIAGNOSIS ---
: 1935 TREATMENT RENDERED WITHOUT A DIAGNOSIS To promote full compliance with coding requirements relating to patient care, physician participation is requested in all cases of information architect uncertainty. Please assist us with providing a diagnosis/symptom for the test(s) below: A diagnosis/symptom was not documented on your Order. A valid diagnosis/symptom is required to bill all insurances. Please remember that we are unable to code a diagnosis of rule out, probable, possible, questionable, or suspected. Tests that require a diagnosis: DOS: 02/19/17 * CBC W/Auto Differential DIAGNOSIS: * Partial Renal Profile DIAGNOSIS: Provider Signature: Date: Thank you Jeaneth [facility] Once completed, please kindly fax back to [phone] For questions please call [phone]
== END ==
LOC: C.LABUPHEI 09:23
PROVIDERS: ATTEND Family Medicine
DX: N18.4 Chronic kidney disease, stage 4 (severe) (principal)

== ENCOUNTER → 2017-02-26 | Outpatient (CLI) | payer OTHER, MEDICARE ==
[2017-02-26 09:16] LABS: ALT/SGPT 14 U/L (12-78); AST/SGOT 11 U/L (15-37); BLOOD UREA NITROGEN 36 mg/dl (7-18); BUN/CREATININE RATIO 15.7 (10-20); CARBON DIOXIDE 25 mmol/L (21-32); CHLORIDE 108 mmol/L (98-107); GLUCOSE 106 mg/dl (70-99); POTASSIUM 3.4 mmol/L (3.5-5.1); SODIUM 143 mmol/L (136-145)
[2017-02-26 09:18] LABS: ALB/GLOB RATIO 0.8 (0.9-2); ALKALINE PHOSPHATASE 89 U/L (45-117)
== END ==
LOC: C.LABUPHEI 08:45
PROVIDERS: ATTEND Family Medicine
DX: M62.81 Muscle weakness (generalized) (principal)

== ENCOUNTER → 2017-04-18 | Outpatient (CLI) | payer OTHER, MEDICARE ==
[2017-04-18 09:43] LABS: BASO % 0.3 %; BASO ABS # 0.03 K/uL (0-0.2); COMPLETE YES; EOS % 5.5 %; HEMATOCRIT 37.5 % (37-47); IG% 0.3 %; LYMPH % 22.2 %; LYMPH ABS # 2.22 K/uL (1.2-3.4); MEAN CELL VOLUME 92.8 fL (80-100); MEAN CORPUSCULAR HEMOGLOBIN 29.5 pg (25-34); MEAN CORPUSCULAR HGB CONC 31.7 g/dl (32-36); MEAN PLATELET VOLUME 10.4 fL (7.4-10.4); MONO % 9.7 %; PLATELET COUNT 255 K/uL (130-400); RED BLOOD COUNT 4.04 M/uL (4.2-5.4); WHITE BLOOD COUNT 10.01 K/uL (4.8-10.8)
[2017-04-18 09:52] LABS: ALT/SGPT 24 U/L (12-78); BLOOD UREA NITROGEN 60 mg/dl (7-18); BUN/CREATININE RATIO 16.8 (10-20); CARBON DIOXIDE 28 mmol/L (21-32); CHLORIDE 108 mmol/L (98-107); GLUCOSE 74 mg/dl (70-99); POTASSIUM 3.8 mmol/L (3.5-5.1); SODIUM 145 mmol/L (136-145)
[2017-04-18 09:54] LABS: ALB/GLOB RATIO 0.7 (0.9-2); ALKALINE PHOSPHATASE 108 U/L (45-117); AST/SGOT 47 U/L (15-37)
== END ==
LOC: C.LABUPHEI 09:34
PROVIDERS: ATTEND Nurse Practitioner Family
DX: R19.7 Diarrhea, unspecified (principal)

== ENCOUNTER → 2017-04-20 | Outpatient (CLI) | payer OTHER, MEDICARE ==
[2017-04-19 07:55] LABS: BASO % 0.5 %; BASO ABS # 0.04 K/uL (0-0.2); COMPLETE YES; EOS % 6.8 %; HEMATOCRIT 34.6 % (37-47); IG% 0.2 %; LYMPH % 25.1 %; LYMPH ABS # 2.14 K/uL (1.2-3.4); MEAN CELL VOLUME 93.8 fL (80-100); MEAN CORPUSCULAR HEMOGLOBIN 29.8 pg (25-34); MEAN CORPUSCULAR HGB CONC 31.8 g/dl (32-36); MEAN PLATELET VOLUME 10.2 fL (7.4-10.4); MONO % 9.7 %; NEUT % 57.7 %; PLATELET COUNT 268 K/uL (130-400); RED BLOOD COUNT 3.69 M/uL (4.2-5.4); WHITE BLOOD COUNT 8.54 K/uL (4.8-10.8)
[2017-04-19 08:02] LABS: ALT/SGPT 22 U/L (12-78); BLOOD UREA NITROGEN 61 mg/dl (7-18); BUN/CREATININE RATIO 16.4 (10-20); CALCIUM 10.7 mg/dl (8.5-10.1); CARBON DIOXIDE 28 mmol/L (21-32); CHLORIDE 108 mmol/L (98-107); GLUCOSE 90 mg/dl (70-99); SODIUM 143 mmol/L (136-145)
[2017-04-19 08:05] LABS: ALB/GLOB RATIO 0.6 (0.9-2); ALKALINE PHOSPHATASE 94 U/L (45-117); AST/SGOT 36 U/L (15-37)
== END ==
LOC: C.LABUPHEI 08:13
PROVIDERS: ATTEND Nurse Practitioner Family
DX: R19.7 Diarrhea, unspecified (principal)

== ENCOUNTER → 2017-05-01 | Outpatient (CLI) | payer OTHER, MEDICARE ==
[2017-05-01 09:46] LABS: BASO % 0.4 %; BASO ABS # 0.04 K/uL (0-0.2); COMPLETE YES; EOS % 5.9 %; HEMATOCRIT 35.3 % (37-47); IG% 0.2 %; LYMPH % 27.6 %; MEAN CELL VOLUME 91.9 fL (80-100); MEAN CORPUSCULAR HEMOGLOBIN 29.4 pg (25-34); MEAN PLATELET VOLUME 9.9 fL (7.4-10.4); MONO % 8.5 %; NEUT % 57.4 %; PLATELET COUNT 313 K/uL (130-400); RED BLOOD COUNT 3.84 M/uL (4.2-5.4); WHITE BLOOD COUNT 9.43 K/uL (4.8-10.8)
[2017-05-01 10:00] LABS: ALT/SGPT 14 U/L (12-78); BLOOD UREA NITROGEN 32 mg/dl (7-18); BUN/CREATININE RATIO 14.1 (10-20); CALCIUM 11.8 mg/dl (8.5-10.1); CARBON DIOXIDE 23 mmol/L (21-32); CHLORIDE 105 mmol/L (98-107); GLUCOSE 97 mg/dl (70-99); POTASSIUM 3.6 mmol/L (3.5-5.1); SODIUM 138 mmol/L (136-145)
[2017-05-01 10:03] LABS: ALB/GLOB RATIO 0.6 (0.9-2); ALKALINE PHOSPHATASE 87 U/L (45-117); AST/SGOT 12 U/L (15-37)
== END | disposition home or self-care (01) ==
LOC: C.LABUPHEI 09:06
PROVIDERS: ATTEND Nurse Practitioner Family
DX: N18.9 Chronic kidney disease, unspecified (principal)

== ENCOUNTER → 2017-05-05 | Outpatient (CLI) | payer OTHER, MEDICARE ==
[2017-05-05 11:40] LABS: BLOOD UREA NITROGEN 31 mg/dl (7-18); BUN/CREATININE RATIO 13.3 (10-20); CARBON DIOXIDE 27 mmol/L (21-32); CHLORIDE 104 mmol/L (98-107); GLUCOSE 88 mg/dl (70-99); POTASSIUM 3.9 mmol/L (3.5-5.1); SODIUM 139 mmol/L (136-145)
[2017-05-05 11:41] LABS: CALCIUM 12.1 mg/dl (8.5-10.1)
--- NOTE | 2017-05-07 13:51 | CODING QUERY NO DIAGNOSIS ---
: 1935 TREATMENT RENDERED WITHOUT A DIAGNOSIS To promote full compliance with coding requirements relating to patient care, physician participation is requested in all cases of hot braider uncertainty. Please assist us with providing a diagnosis/symptom for the test(s) below: A diagnosis/symptom was not documented on your Order. A valid diagnosis/symptom is required to bill all insurances. Please remember that we are unable to code a diagnosis of rule out, probable, possible, questionable, or suspected. Tests that require a diagnosis: DOS: 05/05/2017 * BMP DIAGNOSIS: Provider Signature: Date: Thank you Heidy M[facility] Once completed, please kindly fax back to [phone] For questions please call [phone]
--- NOTE | 2017-05-16 09:08 | CODING QUERY NO DIAGNOSIS ---
: 1935 TREATMENT RENDERED WITHOUT A DIAGNOSIS To promote full compliance with coding requirements relating to patient care, physician participation is requested in all cases of manager professional development uncertainty. Please assist us with providing a diagnosis/symptom for the test(s) below: A diagnosis/symptom was not documented on your Order. A valid diagnosis/symptom is required to bill all insurances. Please remember that we are unable to code a diagnosis of rule out, probable, possible, questionable, or suspected. Tests that require a diagnosis: DOS: 05/05/17 BASIC METABOLIC PANEL DIAGNOSIS: Provider Signature: Date: Thank you Heidy Muro [facility] Once completed, please kindly fax back to [phone] For questions please call [phone]
--- NOTE | 2017-05-23 08:27 | CODING QUERY NO DIAGNOSIS ---
:1935 TREATMENT RENDERED WITHOUT A DIAGNOSIS To promote full compliance with coding requirements relating to patient care, physician participation is requested in all cases of personal lines appraiser uncertainty. Please assist us with providing a diagnosis/symptom for the test(s) below: A diagnosis/symptom was not documented on your Order. A valid diagnosis/symptom is required to bill all insurances. Please remember that we are unable to code a diagnosis of rule out, probable, possible, questionable, or suspected. Tests that require a diagnosis: DOS:05/05/17 [facility] DIAGNOSIS: Provider Signature: Date: Thank you Heidy Muro [facility] Information Management Once completed, please kindly fax back to [phone] For questions please call [phone]
== END ==
LOC: C.LABUPHEI 07:45
PROVIDERS: ATTEND Nurse Practitioner Family
DX: N18.4 Chronic kidney disease, stage 4 (severe) (principal)

== ENCOUNTER → 2017-05-07 | Outpatient (CLI) | payer OTHER, MEDICARE ==
[2017-05-07 10:51] LABS: BLOOD UREA NITROGEN 27 mg/dl (7-18); BUN/CREATININE RATIO 12.1 (10-20); CALCIUM 12.1 mg/dl (8.5-10.1); CARBON DIOXIDE 28 mmol/L (21-32); CHLORIDE 105 mmol/L (98-107); GLUCOSE 108 mg/dl (70-99); MAGNESIUM 2.2 mg/dl (1.8-2.4); POTASSIUM 3.7 mmol/L (3.5-5.1); SODIUM 140 mmol/L (136-145)
== END | disposition home or self-care (01) ==
LOC: C.LABUPHEI 09:16
PROVIDERS: ATTEND Nurse Practitioner Family
DX: N18.9 Chronic kidney disease, unspecified (principal)

== ENCOUNTER → 2017-05-27 | Outpatient (CLI) | payer OTHER, MEDICARE | LOC: C.LABUPHEI 10:50 | PROVIDERS: ATTEND Nurse Practitioner Family | DX: A04.72 Enterocolitis due to Clostridium difficile, not specified as recurrent (principal) ==

== ENCOUNTER → 2017-07-01 | Outpatient (CLI) | payer OTHER, MEDICARE | LOC: C.LABUPHEI 09:31 | PROVIDERS: ATTEND Nurse Practitioner Family | DX: R19.7 Diarrhea, unspecified (principal) ==